=== PATIENT | male | born 1950 | race Caucasian/White ===

== ENCOUNTER 2018-09-17 06:51 | Day surgery (SDC) | payer MEDICARE ==
[~2018-09-17] VITALS: Ht 195.6 cm; Wt 80.6 kg
[2018-09-17] VITALS (7 sets, daily range): BP systolic 125–146; BP diastolic 73–81
[2018-09-17] MEDS ORDERED: normal saline 1000ml 1,000 ML IV PRN (07:10)
[2018-09-17] MEDS ORDERED: METO-395 PO (07:13)
[2018-09-17] MEDS ORDERED: COQ10 (07:20)
[2018-09-17] MEDS ORDERED: BETA1TAB18 PO (07:20)
[2018-09-17] MEDS ORDERED: FERGLU300T PO (07:20)
[2018-09-17] MEDS ORDERED: DOCU-148 (07:20)
[2018-09-17] MEDS ORDERED: VITA-268 PO (07:20)
[2018-09-17] MEDS ORDERED: CHOL500049 (07:20)
[2018-09-17 07:28] LABS: EOSINOPHILS # (AUTO) 0.1 X10'3 (0-0.9); EOSINOPHILS % (AUTO) 1.4 % (0-6); HEMOGLOBIN 10.3 g/dl (14.0-17.9); LYMPHOCYTES # (AUTO) 4.3 X10'3 (1.1-4.8); MEAN PLATELET VOLUME 7.4 FL (7.4-10.4); MONOCYTES # (AUTO) 0.6 X10'3 (0-0.9); NEUTROPHILS # (AUTO) 1.8 X10'3 (1.8-7.7); WHITE BLOOD COUNT 6.8 X10'3 (4.5-11.0)
[2018-09-17 07:29] LABS: BASOPHILS % (AUTO) 0.4 % (0-1); HEMATOCRIT 30.8 % (42.0-52.0); LYMPHOCYTES % (AUTO) 63.6 % (21-51); MEAN CORPUSCULAR HEMOGLOBIN 29.4 PG (27.0-31.0); MEAN CORPUSCULAR HGB CONC 33.5 g/dL (33.0-36.5); MEAN CORPUSCULAR VOLUME 87.7 FL (78-98); MONOCYTES % (AUTO) 8.7 % (2-12); NEUTROPHILS % (AUTO) 25.9 % (42-75); RED BLOOD COUNT 3.51 X10'6 (4.70-6.10); RED CELL DISTRIBUTION WIDTH 14.8 % (11.5-14.5)
[2018-09-17 07:36] LABS: ALBUMIN 3.4 G/DL (3.4-5.0); ANION GAP 9 (8-16); BLOOD UREA NITROGEN 20 MG/DL (7-18); BUN/CREATININE RATIO 15.3 (5.4-32.0); CALCIUM 8.6 MG/DL (8.5-10.1); CHLORIDE 107 MMOL/L (99-107); CREATININE 1.31 MG/DL (0.60-1.10); GLUCOSE 90 MG/DL (70-104); SODIUM 145 MMOL/L (135-145); TOTAL CARBON DIOXIDE 28.8 MMOL/L (24-32); eGFR 54 ML/MIN
[2018-09-17] MEDS ORDERED: heparin sodium, porcine/PF 100unit/ml 5ML syringe ICATH ONE (08:05)
[2018-09-17] MEDS ORDERED: fentaNYL/PF 50MCG/1 ML 2ML syringe IV PRN (08:05)
[2018-09-17] MEDS ORDERED: LIDOcaine 1%/PF 5ML 10 MG/ML VIAL SQ ONE (08:05)
[2018-09-17] MEDS ORDERED: midazolam 2 mg/2 ml injection IV PRN (08:05)
[2018-09-17] MEDS ORDERED: heparin sodium, porcine/PF 100unit/ml 5ML syringe ONE (08:06)
[2018-09-17] MEDS ORDERED: midazolam 2 mg/2 ml injection ONE (08:07)
[2018-09-17] MEDS ORDERED: fentaNYL/PF 50MCG/1 ML 2ML syringe ONE (08:07)
[2018-09-17] MEDS ORDERED: LIDOcaine 1%/PF 5ML 10 MG/ML VIAL ONE (08:07)
[2018-09-17] MEDS ORDERED: LIDOcaine 1% (10mg/ml) 2ml vial SQ ONE (08:25)
[2018-09-17 08:29] LABS: PLATELET COUNT 58 X10'3 (140-440)
[2018-09-17 08:35] LABS: PLATELET ESTIMATE DECREASED; TOTAL CELLS COUNTED 100
== END 2018-09-17 10:27 | disposition home or self-care (01) ==
LOC: SSTAY O 06:51
PROVIDERS: ATTEND Radiology Diagnostic Radiology
DX: C85.90 Non-Hodgkin lymphoma, unspecified, unspecified site (principal); D69.6 Thrombocytopenia, unspecified; D64.9 Anemia, unspecified; Z79.899 Other long term (current) drug therapy
CPT/HCPCS: 36415; 36561; 76937; 77001; 80048; 85025; 85610; 99152; 99153; C1788; C1894; J1642; J2250; J3010; J7030; A6213

== ENCOUNTER 2018-11-13 10:09 | Inpatient (IN) | payer MEDICARE, BC ==
[~2018-11-13] VITALS: Ht 193 cm; Wt 76.3 kg
[~2018-11-13 10:09] MED LIST: BETA1TAB18 PO; CHOL500049 PO; COQ10; DOCU-148; FERGLU300T PO; METO-395 PO; VITA-268 PO
[2018-11-13 11:26] LABS: BASOPHILS # (AUTO) 0.1 X10'3 (0-0.2); BASOPHILS % (AUTO) 1.1 % (0-1); EOSINOPHILS # (AUTO) 0.4 X10'3 (0-0.9); EOSINOPHILS % (AUTO) 6.2 % (0-6); HEMATOCRIT 30.7 % (42.0-52.0); HEMOGLOBIN 10.3 g/dl (14.0-17.9); LYMPHOCYTES # (AUTO) 0.8 X10'3 (1.1-4.8); LYMPHOCYTES % (AUTO) 13.6 % (21-51); MEAN CORPUSCULAR HEMOGLOBIN 30.5 PG (27.0-31.0); MEAN CORPUSCULAR HGB CONC 33.6 g/dL (33.0-36.5); MEAN CORPUSCULAR VOLUME 90.9 FL (78-98); MEAN PLATELET VOLUME 6.5 FL (7.4-10.4); MONOCYTES % (AUTO) 16.7 % (2-12); NEUTROPHILS # (AUTO) 3.9 X10'3 (1.8-7.7); NEUTROPHILS % (AUTO) 62.4 % (42-75); PLATELET COUNT 265 X10'3 (140-440); RED BLOOD COUNT 3.38 X10'6 (4.70-6.10); RED CELL DISTRIBUTION WIDTH 19.4 % (11.5-14.5); WHITE BLOOD COUNT 6.2 X10'3 (4.5-11.0)
[2018-11-13 11:37] LABS: ALANINE AMINOTRANSFERASE 17 U/L (12-78); ALBUMIN 3.2 G/DL (3.4-5.0); ALBUMIN/GLOBULIN RATIO 0.8 (1.1-1.5); ALKALINE PHOSPHATASE 57 IU/L (46-116); ANION GAP 7 (8-16); ASPARTATE AMINO TRANSFERASE 18 U/L (10-37); BILIRUBIN,TOTAL 0.3 MG/DL (0.1-1.0); BLOOD UREA NITROGEN 30 MG/DL (7-18); BUN/CREATININE RATIO 11.4 (5.4-32.0); CHLORIDE 105 MMOL/L (99-107); CREATININE 2.63 MG/DL (0.60-1.10); GLUCOSE 96 MG/DL (70-104); POTASSIUM 4.4 MMOL/L (3.5-5.1); SODIUM 142 MMOL/L (135-145); TOTAL CARBON DIOXIDE 30.3 MMOL/L (24-32); TOTAL PROTEIN 7.4 G/DL (6.4-8.2); eGFR 24 ML/MIN
[2018-11-13 11:41] LABS: CLARITY,URINE SLIGHTLY CLOUDY (Clear); COLOR,URINE YELLOW (Yellow); GLUCOSE, URINE NEGATIVE (Neg); KETONES,URINE NEGATIVE (Neg); LEUKOCYTE ESTERASE ,URINE NEGATIVE (Neg); NITRITES, URINE NEGATIVE (Neg); OCCULT BLOOD,URINE LARGE (Neg); PH,URINE 5.5 (4.8-8.0); PROTEIN,URINE NEGATIVE (Neg); UROBILINOGEN,URINE 0.2 E.U/dL (0.2-1.0)
[2018-11-13 11:42] LABS: UA COLLECTION TYPE URINAL
[2018-11-13 11:48] LABS: ANISOCYTOSIS 2+; MICROCYTOSIS 1+; PLATELET ESTIMATE NORMAL; POLYCHROMASIA 1+
[2018-11-13 11:50] LABS: SQUAMOUS EPITHELIAL CELL,UR FEW /LPF (FEW)
[2018-11-13 11:51] LABS: MUCUS STRANDS FEW /LPF (Neg)
[2018-11-13 11:53] LABS: RBC,URINE 20-50 /HPF (0-2); WBC,URINE 0-4 /HPF (0-4)
[2018-11-13 11:59] LABS: BACTERIA,URINE FEW /HPF (Neg)
[2018-11-13] MEDS ORDERED: normal saline 1000ML IV soln IVB ONE (12:20)
[2018-11-13] MEDS ORDERED: [UNRECOGNIZED DRUG - CODE] SQ (12:26)
[2018-11-13] MEDS ORDERED: TBO-480S SQ (12:30)
--- NOTE | 2018-11-13 13:37 | NUR ---
hospitalist at the bedside at this time
[2018-11-13] MEDS ORDERED: ondansetron/PF 4mg/2ml inj IV PRN (14:10)
[2018-11-13] MEDS ORDERED: potassium CL 10mEq/100ml bag 100 ML IV PRN ×2 (14:10)
[2018-11-13] MEDS ORDERED: magnesium 4gm in 100ml NS 100 ML IV PRN (14:10)
[2018-11-13] MEDS ORDERED: magnesium 2GM in 50ml NS 50 ML IV PRN (14:10)
[2018-11-13] MEDS ORDERED: potassium Cl 20 mEq SR tablet PO PRN ×2 (14:10)
[2018-11-13] MEDS: normal saline 1000ml 1,000 ML IV SCH (15:09)
--- NOTE | 2018-11-13 16:45 | NUR ---
Received Pt in a wheelchair accompanied by 1 ER staff, pt A&O x4, he came with a bag of personal belongings,hospital gown and anti-slip socks. Pt able to walk from wheelchair to bed, steady gait and very pleasant gentleman. Iv fluids running, pt states he has zero pain.
[2018-11-13] MEDS ORDERED: metoprolol succinate 25mg (24-HOUR) SR. Tablet PO SCH (17:15)
[2018-11-13] MEDS ORDERED: EPOETIN ALFA EPBX SQ SCH (17:15)
[2018-11-13] MEDS ORDERED: TBO-filgrastim 480 MCG/0.8ml syringe SQ SCH (17:15)
[2018-11-13 17:28] VITALS: BP 178/86
--- NOTE | 2018-11-13 18:23 | NUR ---
Problems reprioritized. Patient report given, questions answered & plan of care reviewed with JUSTIN ANDERSON RN.
--- NOTE | 2018-11-13 18:30 | NUR ---
Patient in room [facility]. I have received report from KINZA MADDOX and had the opportunity to ask questions and assume patient care.
[2018-11-13 20:00] VITALS: BP 144/80
[2018-11-13] MEDS: ferrous gluconate 324mg tablet PO SCH (20:41)
[2018-11-14] VITALS: BP 123/63
[2018-11-14] MEDS: normal saline 1000ml 1,000 ML IV SCH ×3 (00:38→19:07)
[2018-11-14 05:20] LABS: BASOPHILS # (AUTO) 0.1 X10'3 (0-0.2); BASOPHILS % (AUTO) 1.1 % (0-1); EOSINOPHILS # (AUTO) 0.3 X10'3 (0-0.9); EOSINOPHILS % (AUTO) 5.7 % (0-6); HEMATOCRIT 24.9 % (42.0-52.0); HEMOGLOBIN 8.4 g/dl (14.0-17.9); LYMPHOCYTES # (AUTO) 0.7 X10'3 (1.1-4.8); LYMPHOCYTES % (AUTO) 14.2 % (21-51); MEAN CORPUSCULAR HEMOGLOBIN 30.2 PG (27.0-31.0); MEAN CORPUSCULAR HGB CONC 33.7 g/dL (33.0-36.5); MEAN CORPUSCULAR VOLUME 89.7 FL (78-98); MEAN PLATELET VOLUME 6.3 FL (7.4-10.4); MONOCYTES # (AUTO) 0.9 X10'3 (0-0.9); MONOCYTES % (AUTO) 16.7 % (2-12); NEUTROPHILS # (AUTO) 3.3 X10'3 (1.8-7.7); NEUTROPHILS % (AUTO) 62.3 % (42-75); PLATELET COUNT 187 X10'3 (140-440); RED BLOOD COUNT 2.78 X10'6 (4.70-6.10); RED CELL DISTRIBUTION WIDTH 19.9 % (11.5-14.5); WHITE BLOOD COUNT 5.2 X10'3 (4.5-11.0)
[2018-11-14 05:32] LABS: ALBUMIN 2.5 G/DL (3.4-5.0); ANION GAP 12 (8-16); BLOOD UREA NITROGEN 31 MG/DL (7-18); CALCIUM 8.1 MG/DL (8.5-10.1); CHLORIDE 109 MMOL/L (99-107); CREATININE 2.39 MG/DL (0.60-1.10); GLUCOSE 95 MG/DL (70-104); MAGNESIUM 1.7 MG/DL (1.5-2.4); POTASSIUM 4.1 MMOL/L (3.5-5.1); SODIUM 147 MMOL/L (135-145); TOTAL CARBON DIOXIDE 25.7 MMOL/L (24-32); eGFR 27 ML/MIN
--- NOTE | 2018-11-14 06:43 | NUR ---
Patient in room [facility]. I have received report from TAN Richey and had the opportunity to ask questions and assume patient care.
[2018-11-14 07:11] LABS: ANISOCYTOSIS 2+; PLATELET ESTIMATE NORMAL; TOTAL CELLS COUNTED 100
[2018-11-14 07:12] LABS: POLYCHROMASIA 1+
[2018-11-14 07:13] LABS: POIKILOCYTOSIS 1+
[2018-11-14 07:38] VITALS: BP 143/70
[2018-11-14] MEDS: K and/or MAG REPLACEMENT MC SCH (08:00)
[2018-11-14] MEDS: beta-carotene(A) w/C & E + minerals tab PO SCH (08:13)
[2018-11-14] MEDS: ferrous gluconate 324mg tablet PO SCH ×3 (08:14→20:08)
[2018-11-14 12:04] VITALS: BP 144/70
[2018-11-14] MEDS: metoprolol succinate 25mg (24-HOUR) SR. Tablet PO SCH (17:48)
--- NOTE | 2018-11-14 18:36 | NUR ---
Problems reprioritized. Patient report given, questions answered & plan of care reviewed with TAN Richey.
--- NOTE | 2018-11-14 18:38 | NUR ---
Patient in room [facility]. I have received report from CLAIRE MADDOX and had the opportunity to ask questions and assume patient care.
[2018-11-14 20:00] VITALS: BP 146/71
[2018-11-15] VITALS: BP 130/72
[2018-11-15] MEDS: normal saline 1000ml 1,000 ML IV SCH ×3 (04:26→23:01)
[2018-11-15 05:47] LABS: BASOPHILS # (AUTO) 0.1 X10'3 (0-0.2); BASOPHILS % (AUTO) 1.1 % (0-1); EOSINOPHILS # (AUTO) 0.3 X10'3 (0-0.9); EOSINOPHILS % (AUTO) 6.8 % (0-6); HEMATOCRIT 23.2 % (42.0-52.0); HEMOGLOBIN 7.9 g/dl (14.0-17.9); LYMPHOCYTES # (AUTO) 0.7 X10'3 (1.1-4.8); LYMPHOCYTES % (AUTO) 13.9 % (21-51); MEAN CORPUSCULAR HEMOGLOBIN 30.5 PG (27.0-31.0); MEAN CORPUSCULAR VOLUME 89.4 FL (78-98); MEAN PLATELET VOLUME 6.1 FL (7.4-10.4); MONOCYTES # (AUTO) 0.8 X10'3 (0-0.9); MONOCYTES % (AUTO) 15.8 % (2-12); NEUTROPHILS % (AUTO) 62.4 % (42-75); PLATELET COUNT 158 X10'3 (140-440); RED CELL DISTRIBUTION WIDTH 21.3 % (11.5-14.5); WHITE BLOOD COUNT 4.8 X10'3 (4.5-11.0)
[2018-11-15 06:02] LABS: ALBUMIN 2.3 G/DL (3.4-5.0); ANION GAP 10 (8-16); BLOOD UREA NITROGEN 25 MG/DL (7-18); BUN/CREATININE RATIO 11.2 (5.4-32.0); CALCIUM 7.6 MG/DL (8.5-10.1); CHLORIDE 107 MMOL/L (99-107); CREATININE 2.23 MG/DL (0.60-1.10); GLUCOSE 90 MG/DL (70-104); MAGNESIUM 1.4 MG/DL (1.5-2.4); POTASSIUM 3.8 MMOL/L (3.5-5.1); SODIUM 141 MMOL/L (135-145); TOTAL CARBON DIOXIDE 23.8 MMOL/L (24-32); eGFR 29 ML/MIN
--- NOTE | 2018-11-15 06:30 | NUR ---
Problems reprioritized. Patient report given, questions answered & plan of care reviewed with CLAIRE MADDOX.
--- NOTE | 2018-11-15 06:32 | NUR ---
Patient in room [facility]. I have received report from TAN Richey and had the opportunity to ask questions and assume patient care.
[2018-11-15 07:26] VITALS: BP 157/62
[2018-11-15] MEDS: K and/or MAG REPLACEMENT MC SCH (08:00)
[2018-11-15] MEDS: beta-carotene(A) w/C & E + minerals tab PO SCH (08:16)
[2018-11-15] MEDS: ferrous gluconate 324mg tablet PO SCH ×3 (08:17→20:09)
[2018-11-15] MEDS: magnesium Cl slow-release 64mg tablet PO PRN ×2 (10:04→23:00)
[2018-11-15 11:00] VITALS: BP 136/72
[2018-11-15] MEDS: metoprolol succinate 25mg (24-HOUR) SR. Tablet PO SCH (17:46)
--- NOTE | 2018-11-15 18:18 | NUR ---
Problems reprioritized. Patient report given, questions answered & plan of care reviewed with TAN Calderon.
--- NOTE | 2018-11-15 18:50 | NUR ---
Patient in room [facility]. I have received report from Rika MADDOX and had the opportunity to ask questions and assume patient care. patient is eating dinner and his is sitting by his bedside.
[2018-11-15 19:00] VITALS: BP 133/68
[2018-11-16] VITALS: BP 143/74
--- NOTE | 2018-11-16 06:46 | NUR ---
Patient in room [facility]. I have received report from Yumiko MADDOX and had the opportunity to ask questions and assume patient care.
[2018-11-16 06:47] LABS: BASOPHILS # (AUTO) 0.1 X10'3 (0-0.2); BASOPHILS % (AUTO) 1.1 % (0-1); EOSINOPHILS # (AUTO) 0.4 X10'3 (0-0.9); EOSINOPHILS % (AUTO) 7.7 % (0-6); HEMATOCRIT 25.4 % (42.0-52.0); HEMOGLOBIN 8.6 g/dl (14.0-17.9); LYMPHOCYTES # (AUTO) 0.8 X10'3 (1.1-4.8); LYMPHOCYTES % (AUTO) 14.8 % (21-51); MEAN CORPUSCULAR HEMOGLOBIN 30.6 PG (27.0-31.0); MEAN CORPUSCULAR VOLUME 89.9 FL (78-98); MEAN PLATELET VOLUME 6.6 FL (7.4-10.4); MONOCYTES # (AUTO) 0.8 X10'3 (0-0.9); MONOCYTES % (AUTO) 13.4 % (2-12); NEUTROPHILS # (AUTO) 3.6 X10'3 (1.8-7.7); PLATELET COUNT 172 X10'3 (140-440); RED BLOOD COUNT 2.82 X10'6 (4.70-6.10); RED CELL DISTRIBUTION WIDTH 20.6 % (11.5-14.5); WHITE BLOOD COUNT 5.7 X10'3 (4.5-11.0)
[2018-11-16 06:50] LABS: ALBUMIN 2.5 G/DL (3.4-5.0); ANION GAP 10 (8-16); BLOOD UREA NITROGEN 25 MG/DL (7-18); BUN/CREATININE RATIO 11.2 (5.4-32.0); CALCIUM 7.8 MG/DL (8.5-10.1); CHLORIDE 108 MMOL/L (99-107); CREATININE 2.24 MG/DL (0.60-1.10); GLUCOSE 88 MG/DL (70-104); MAGNESIUM 1.5 MG/DL (1.5-2.4); POTASSIUM 3.7 MMOL/L (3.5-5.1); SODIUM 142 MMOL/L (135-145); TOTAL CARBON DIOXIDE 23.7 MMOL/L (24-32); eGFR 29 ML/MIN
[2018-11-16 07:00] VITALS: BP 145/68
[2018-11-16 07:34] LABS: PLATELET ESTIMATE NORMAL
[2018-11-16 07:35] LABS: ANISOCYTOSIS 3+; POLYCHROMASIA 1+
[2018-11-16] MEDS: K and/or MAG REPLACEMENT MC SCH (08:00)
[2018-11-16] MEDS: ferrous gluconate 324mg tablet PO SCH ×2 (09:01→12:57)
[2018-11-16] MEDS: beta-carotene(A) w/C & E + minerals tab PO SCH (09:01)
[2018-11-16] MEDS: normal saline 1000ml 1,000 ML IV SCH (09:12)
[2018-11-16 12:23] VITALS: BP 145/67
--- NOTE | 2018-11-16 13:45 | NUR ---
Pt discharged, accompanied him. Pt's IV cath. removed & intact, A&O, appropriate. Pt's belonging packed and carried out by along with his cell phone and dry pan charger. Both Pt and verbalized understanding of discharged instructions and follow up with Oncologist. Pt wheeled out in a wheelchair by one of our aids. Discharged packed signed and given to pt's .
[2018-11-18] MEDS ORDERED: ergocalciferol (Vitamin D) 50,000 unit capsule PO SCH (08:00)
== END 2018-11-16 13:43 | disposition home or self-care (01) | DRG 683 ==
LOC: ER 10:09 → SUR 3N 17:07 → OBSVTOIN 17:07
PROVIDERS: ADMIT Internal Medicine; ATTEND Family Medicine
DX: N17.9 Acute kidney failure, unspecified (principal); C83.10 Mantle cell lymphoma, unspecified site; E87.0 Hyperosmolality and hypernatremia; R31.29 Other microscopic hematuria; D69.6 Thrombocytopenia, unspecified; D64.9 Anemia, unspecified; Z87.442 Personal history of urinary calculi
CPT/HCPCS: 36415; 76775; 80048; 80053; 81001; 82570; 83735; 83880; 83935; 84300; 84550; 85025; 87081; 87207; 99285; G0378; J7030